=== PATIENT | female | born 1955 | race Caucasian/White ===

== ENCOUNTER 2020-07-06 17:20 | Inpatient (IN) | payer OTHER ==
[~2020-07-06] VITALS: Ht 157.5 cm; Wt 24.4 kg
[2020-07-06 17:28] VITALS: BP 130/57
[2020-07-06 22:47] VITALS: BP 102/78
[2020-07-06 22:51] LABS: HEMATOCRIT 35.6 % (37.0-47.0); HEMOGLOBIN 11.9 gm/dL (12.0-15.0); MCH 29.4 pg (26.0-34.0); MCHC 33.3 g/dL (28.0-37.0); MCV 88.3 fL (80.0-100.0); RBC 4.03 mil/uL (4.20-5.00); RDW 13.9 % (10.5-14.5); WBC 9.5 thou/uL (4.0-11.0)
[2020-07-06 23:07] LABS: CALCIUM 8.8 mg/dL (8.5-10.1); CREATININE 0.7 mg/dL (0.6-1.0); POTASSIUM 4.1 mmol/L (3.5-5.1)
[2020-07-06 23:18] VITALS: BP 85/36
[2020-07-07] VITALS (8 sets, daily range): BP systolic 85–114; BP diastolic 21–53
[2020-07-07] MEDS ORDERED: INDERAL LA120 M1 PO (00:12)
[2020-07-07] MEDS ORDERED: NAMENDA 10 MG T10 MG PO (00:12)
[2020-07-07] MEDS ORDERED: DULOXETINE HCL30 MG PO (00:12)
[2020-07-07] MEDS ORDERED: NEURONTIN 300M300 M2 PO (00:13)
[2020-07-07 05:27] LABS: PROTIME 10.4 Seconds (9.3-11.4)
--- NOTE | 2020-07-07 06:16 | NUR ---
PT ARRIVED TO UNIT APPROX AT 0025. PT ORIENTED TO ROOM, ADMISSION PACKET PROVIDED. PT AOX4. PT DENIES PAIN AND SOB. PT ON 2L O2 VIA NC. PT CONTINUES TO REST IN BED, FREQUENT REPOSITIONING ENCOURAGED. BLE NOTED TO BE CONTRACTED AND FLACCID, BUE WITH WEAK HAND DRIVER'S LICENSE REVIEWING OFFICER. PT INCONTINENT OF URINE AND BOWEL. RUSSELL CATHETER ORDERED, PT REFUSING, EXTERNAL CATHETER OFFERED, PT AGREEABLE. PT NOTED TO FALL ASLEEP DURING ADMISSION. PT REPORTS SHE HAS HAD A LONG DAY AND WOULD LIKE TO SLEEP. PROVIDED REASSURANCE THAT PT COMFORT AND SAFETY WILL REMAIN PRIORITY. PT ENCOURAGED TO NOTIFY STAFF FOR ALL NEEDS. CALL LIGHT WITHIN REACH, BED ALARM ON, BED IN LOWEST POSITION, FREQUENT MONITORING CONTINUES.
--- NOTE | 2020-07-07 07:44 | EKG ---
[facility] [place] [address] ELECTROCARDIOGRAM REPORT Name: THEO BROCK Room #: 437-P ADM IN M.R.#: [id number] Admission: 07/06/20 Attend Phys: Yovani Gardiner MD Discharge: Date of : 55 Report #: [id number] THIS REPORT FOR: cc: LU Castillo family physician/PCP LU Castillo family physician/PCP Pratik Dockery MD [facility] THIS REPORT FOR: //name// [facility] ED Test Date: 2020-07-06 Test Time: 23:06:25 Pat Name: THEO BROCK Department: Room: [facility] Gender: F Area Representative: RUEL : 1955 Requested By: Marco Correa Order Number: [id number] MD: Pratik Dockery Measurements Intervals [place] Rate: 59 P: 64 NH: 191 QRS: 34 QRSD: 86 T: 50 QT: 456 QTc: 452 Interpretive Statements Sinus rhythm Consider left atrial enlargement Borderline T wave abnormalities No previous ECG available for comparison Electronically Signed On 07-07-2020 7:44:21 CDT by Pratik Dockery [email or web address] <ELECTRONICALLY SIGNED> By: Pratik Dockery MD, FACC 07/07/20 0744 2306 Pratik Dockery MD, [facility] /EPI
--- NOTE | 2020-07-07 08:35 | NUR ---
ASSESSMENT: CM REVIEWED CHART AND MET WITH PT AT THE BEDSIDE. PT IS ALERT AND ORIENTED X4. PT IS HERE DUE TO CLOSED FIBULAR FX AND FRACTURE OF PROXIMAL END OF TIBIA. PT IS HAVING NONOP TX. PT REPORTS LIVING IN A HOUSE WITH HER . PT REPORTS HAVING A RAMP TO ENTER THE HOME AND REPORTS USING AN ELECTRIC SCOOTER. SHE REPORTS HER HELPS ASSIST HER WITH ADLS AND TRANSFERING INTO BED OR SHOWER. PT REPORTS SHE HAS NOT HAD HH IN THE PAST. PT REPORTS MOVING HERE JUST ABOUT A YEAR AGO. CM RECEIVED A CONSULT TO ARRANGE HH FOR PATIENT. PT STATES SHE HAS NO PREFERENCE OF HH COMPANY. CM FAXED REFERRAL TO [facility] AND WAITING TO HEAR BACK. CM WILL CONTINUE TO FOLLOW TO ASSIST NEEDED.
--- NOTE | 2020-07-07 14:03 | NUR ---
ON-GOING ASSESSMENT: CM REVIEWED CHART AND PT HAS ORDERS TO DISCHARGE HOME TODAY WITH HH. PT HAD NO PREFERENCE OF HH COMPANY AND [facility] HAS ACCEPTED PATIENT. CM NOTIFIED THEM OF DISCHARGE HOME TODAY. CM FAXED D/C ORDERS AND SUMMARY TO THEM AND CONFIRMED THEY RECEIVED IT. PTS IS AT THE BEDSIDE AND CM DISCUSSED HOME HEALTH. PTS WAS ABLE TO WORK WITH PHYSICAL THERAPY AND [employer] ASSISTING PATIENT AND PT WAS CLEARED TO DISCHARGE HOME WITH HH. THEY REPORT THEY HAVE ALL THE EQUIPTMENT NEEDED AT HOME. PT AND DECLINE THE NEED FOR ANY PRIVATE DUTY INFORMATION.
--- NOTE | 2020-07-07 23:30 | NUR ---
1900 ASSUMED CARE OF PT AFTER REPORT. 1999 BASELINE ASSESSMENT COMPLETED. SEE ASSESSMENT FOR MORE DETAL, PT REPOSITIONED TO R SIDE, AND PILLOW PLACED BETWEEN LEGS, SOFT TOUCH CALL LIGHT PLACED FOR PT USE, ARMS ELEVATED ON BLANKETS, NO COMPLAINTS AT THIS TIME, TOES TO RIGHT FOOT WITH SENSATION AND SLIGHT MOVEMENT WHICH PT STATES IS NORMAL FOR HER. CAP REFILL <3 SECOND, AND IS WARM AND PINK FALL PRECAUTIONS IN PLACE SCDS IN PLACE TO LLE
[2020-07-08 05:00] VITALS: BP 126/43
[2020-07-08 07:35] VITALS: BP 112/44
[2020-07-08 08:48] LABS: ABSOLUTE NEUTROPHILS 6.4 thou/uL (1.4-8.2); BASOPHILS 0.4 % (0.0-2.0); HEMOGLOBIN 10.5 gm/dL (12.0-15.0); LYMPHOCYTES 14.6 % (24.0-44.0); MCH 30.8 pg (26.0-34.0); MCHC 34.9 g/dL (28.0-37.0); MCV 88.5 fL (80.0-100.0); MONOCYTES 11.5 % (1.0-8.0); PLATELET COUNT 184 thou/uL (150-400); POLYS 71.5 % (36.0-66.0); RBC 3.39 mil/uL (4.20-5.00); RDW 13.4 % (10.5-14.5); WBC 8.9 thou/uL (4.0-11.0)
[2020-07-08 09:00] LABS: ALBUMIN 2.5 g/dL (3.4-5.0); CALCIUM 8.3 mg/dL (8.5-10.1); CREATININE 0.6 mg/dL (0.6-1.0); MAGNESIUM 1.8 mg/dL (1.8-2.4); POTASSIUM 3.7 mmol/L (3.5-5.1); TOTAL BILIRUBIN 0.5 mg/dL (0.2-1.0); TOTAL PROTEIN 6.4 g/dL (6.4-8.2)
[2020-07-08 15:05] LABS: BE(vivo) 3.5 mmol/L (-2 to +3); HCO3 27.1 mmol/L (22.0-26.0); PO2 51.6 mmHg (80.0-100.0); pH 7.482 (7.360-7.450); sO2 89.2 % (92.0-98.0)
[2020-07-08 15:48] VITALS: BP 110/51
--- NOTE | 2020-07-08 15:50 | NUR ---
ON-GOING ASSESSMENT: CM REVIEWED CHART AND SPOKE WITH ATTENDING. PT HAD ABG COMPLETED AND IS REQUIRING HOME OXYGEN. CM MET WITH PT AND SHE HAS NO PREFERENCE OF DME COMPANY. CM SPOKE WITH JUAN DANIEL HUIZAR FROM [facility] WHO REPORTS THEY CAN SUPPLY OXYGEN FOR PATIENT AND HE WILL DELIVER A PORTABLE TANK HERE TO THE HOSPITAL AROUND 1700. PT IS TO HAVE STAT ULTRASOUND AND THEN PENDING THOSE RESULTS SHE MAY DISCHARGE TODAY OR TOMORROW. CM NOTIFIED [facility] AND THEY WILL HAVE PATIENT CALL IF SHE DISCHARGES TODAY TO SET UP HOME CONCERNTRATOR ONCE SHE IS HOME. CM ALSO NOTIFIED [facility] THAT DISCHARGE IS PENDING FOR TODAY. CM WILL CONTINUE TO FOLLOW TO ASSIST NEEDED.
[2020-07-08 16:28] VITALS: BP 118/44
--- NOTE | 2020-07-08 18:20 | NUR ---
PT A&OX4. IV INTACT IN R AC. NON AMBULATORY. SOFT CAST IN PLACE TO R LWER EXTREM. O2 @ 2 L PER NC. SCD TO LLE. CT AND US COMPLETED. DISCHARGE ON HOLD. PT HAD PAIN AND MUSCLE SPASMS TODAY, PO MEDS ORDERED. TOUCH LIGHT IN REACH, BED ALARM ON.
[2020-07-08 19:35] VITALS: BP 113/58
--- NOTE | 2020-07-09 04:24 | NUR ---
VSS-AFEBRILE. 2LNC REMAINS IN PLACE TO KEEP SAO2 >92%. PAIN WELL CONTROLLED WITH IV PAIN MEDICATION. SEVERAL EPISODES OF URINARY INCONTINENCE, JOANN AREA CLEANSED AND CREAM APPLIED WITH EVERY CHANGE. TURNED AND OFFERED ORAL HYDRATION EVERY TWO HOURS FOR COMFORT. FALL PRECAUTIONS IN PLACE.
[2020-07-09 06:00] VITALS: BP 116/60
[2020-07-09 08:18] VITALS: BP 134/68
--- NOTE | 2020-07-09 12:04 | NUR ---
dcp: home with [facility] home o2. portable tank already delivered. she going to have plum consult then possible dc later today.
[2020-07-09 12:13] LABS: ABSOLUTE NEUTROPHILS 5.4 thou/uL (1.4-8.2); BASOPHILS 0.2 % (0.0-2.0); EOSINOPHILS 2.1 % (0.0-3.0); HEMATOCRIT 33.1 % (37.0-47.0); HEMOGLOBIN 11.1 gm/dL (12.0-15.0); LYMPHOCYTES 18.5 % (24.0-44.0); MCHC 33.4 g/dL (28.0-37.0); MCV 86.8 fL (80.0-100.0); MONOCYTES 11.1 % (1.0-8.0); PLATELET COUNT 227 thou/uL (150-400); POLYS 68.1 % (36.0-66.0); RBC 3.82 mil/uL (4.20-5.00)
[2020-07-09 12:29] LABS: CALCIUM 9.1 mg/dL (8.5-10.1); CREATININE 0.6 mg/dL (0.6-1.0); MAGNESIUM 2.2 mg/dL (1.8-2.4); POTASSIUM 3.3 mmol/L (3.5-5.1)
[2020-07-09] MEDS ORDERED: INDERAL LA60 MG PO (14:03)
[2020-07-09] MEDS ORDERED: HYDROCODON-ACE1 EAC7 PO (14:03)
[2020-07-09] MEDS ORDERED: MIRALAX119 GM PO (14:14)
[2020-07-09 14:40] VITALS: BP 110/51
--- NOTE | 2020-07-09 16:16 | NUR ---
Assumed care of pt. at 0700. Pt. is calm and cooperative. Pt.'s is very apprehensive and angered at the commmunication between health care providers and is upset that his is still in the hospital. After consultation with pulmonology she was cleared for discharge. Pt. also had X-Ray of R. shoulder that revealed AC joint separation. Porfiriomoose was called and agreed that she could follow up on these cares with outpatient services. Sling was offered but not wanted. Pt. discharged with , wheelchair, and oxygen tank.
== END 2020-07-09 15:48 | disposition home health service (06) | DRG 563 ==
LOC: ER 17:20 → EROBS 22:33 → 4S 22:33
PROVIDERS: Internal Medicine; Nurse Practitioner Family; Physician Assistant; ADMIT Orthopaedic Surgery Sports Medicine; ATTEND Orthopaedic Surgery Sports Medicine
PROC: 2W3NX1Z Immobilization of Right Upper Leg using Splint (ICD-10-PCS; principal; 2020-07-06)
DX: S82.101A Unspecified fracture of upper end of right tibia, initial encounter for closed fracture (principal); E87.3 Alkalosis; L03.116 Cellulitis of left lower limb; S82.831A Other fracture of upper and lower end of right fibula, initial encounter for closed fracture; G35 Multiple sclerosis; E11.9 Type 2 diabetes mellitus without complications; I10 Essential (primary) hypertension; I48.91 Unspecified atrial fibrillation; I87.2 Venous insufficiency (chronic) (peripheral); M54.30 Sciatica, unspecified side; Z20.828 Contact with and (suspected) exposure to other viral communicable diseases; Z79.4 Long term (current) use of insulin; Z79.899 Other long term (current) drug therapy; W18.39XA Other fall on same level, initial encounter; Y93.89 Activity, other specified; Y92.89 Other specified places as the place of occurrence of the external cause; Y99.8 Other external cause status
CPT/HCPCS: 10195

== ENCOUNTER 2021-06-03 10:51 | Emergency (ER) | payer OTHER ==
[~2021-06-03] VITALS: Ht 157.5 cm; Wt 45.4 kg
[~2021-06-03 10:51] MED LIST: DULOXETINE HCL30 MG PO; HYDROCODON-ACE1 EAC7 PO; INDERAL LA120 M1 PO; INDERAL LA60 MG PO; MIRALAX119 GM PO; NAMENDA 10 MG T10 MG PO; NEURONTIN 300M300 M2 PO
[2021-06-03 11:34] LABS: ABSOLUTE NEUTROPHILS 3.8 thou/uL (1.4-8.2); BASOPHILS 0.2 % (0.0-2.0); EOSINOPHILS 1.5 % (0.0-3.0); HEMOGLOBIN 14.2 gm/dL (12.0-15.0); LYMPHOCYTES 17.9 % (24.0-44.0); MCH 30.1 pg (26.0-34.0); MCHC 33.8 g/dL (28.0-37.0); MONOCYTES 12.4 % (1.0-8.0); PLATELET COUNT 218 thou/uL (150-400); RBC 4.72 mil/uL (4.20-5.00); WBC 5.6 thou/uL (4.0-11.0)
[2021-06-03 11:43] LABS: ANION GAP 5 mmol/L (7-16); BUN 9 mg/dL (7-18); CALCIUM 8.9 mg/dL (8.5-10.1); CHLORIDE 99 mmol/L (98-107); CO2 30 mmol/L (21-32); CREATININE 0.8 mg/dL (0.6-1.0); GLUCOSE 103 mg/dL (74-106); SODIUM 134 mmol/L (136-145)
[2021-06-03 11:53] LABS: ALBUMIN 3.5 g/dL (3.4-5.0); SGOT 25 U/L (15-37); SGPT 26 U/L (30-65); TOTAL BILIRUBIN 0.4 mg/dL (0.2-1.0); TOTAL PROTEIN 7.4 g/dL (6.4-8.2); TROPONIN-I <0.06 ng/mL (<0.06)
--- NOTE | 2021-06-03 12:11 | EKG ---
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 : 1955 Requested By: Reba Guerra Order Number: [id number] MD: Pratik Dockery Measurements Intervals [place] Rate: 67 P: 54 MD: 171 QRS: 7 QRSD: 102 T: 60 QT: 398 QTc: 420 Interpretive Statements Sinus rhythm Probable left atrial enlargement Compared to ECG 07/06/2020 23:06:25 T-wave abnormality no longer present Electronically Signed On 06-03-2021 12:11:08 CDT by Pratik Dockery [email or web address] <ELECTRONICALLY SIGNED> By: Pratik Dockery MD, [facility] 06/03/21 1211 1134 1134 Pratik Dockery MD, FACC /EPI
[2021-06-03] MEDS ORDERED: PREDNISONE 20 M20 MG PO (12:33)
[2021-06-03] MEDS ORDERED: LEVOFLOXACIN750 MG PO (12:33)
[2021-06-03 12:40] VITALS: BP 118/48
--- NOTE | 2021-06-05 12:22 | EKG ---
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
== END 2021-06-03 12:40 | disposition home or self-care (01) ==
LOC: ER 10:51
PROVIDERS: Nurse Practitioner Family
DX: J18.9 Pneumonia, unspecified organism (principal); Z20.822 Contact with and (suspected) exposure to COVID-19; E11.9 Type 2 diabetes mellitus without complications; I10 Essential (primary) hypertension; I48.91 Unspecified atrial fibrillation; Z79.899 Other long term (current) drug therapy

== ENCOUNTER → 2021-07-05 | Outpatient (CLI) | payer OTHER ==
[~2021-07-05] MED LIST changes: +LEVOFLOXACIN750 MG PO; +PREDNISONE 20 M20 MG PO
== END ==
LOC: RAD 14:03
PROVIDERS: ATTEND Nurse Practitioner
DX: M81.0 Age-related osteoporosis without current pathological fracture (principal); M85.88 Other specified disorders of bone density and structure, other site; J84.9 Interstitial pulmonary disease, unspecified; R05 Cough

== ENCOUNTER → 2021-08-25 | Outpatient (CLI) | payer OTHER | LOC: RAD 10:05 | PROVIDERS: ATTEND Pediatrics | DX: R06.02 Shortness of breath (principal); M47.814 Spondylosis without myelopathy or radiculopathy, thoracic region ==